=== PATIENT | male | born 1995 | race Caucasian/White ===

== ENCOUNTER → 2018-10-15 12:25 | Outpatient (CLI) | payer OTHER, SELFPAY ==
--- NOTE | 2018-10-15 | DI.RAD.S_ITS ---
PROCEDURE: FL SHOULDER INJECTION MR/CT RT INDICATIONS: PAIN IN RIGHT SHOULDER TECHNIQUE: The indications, alternatives, benefits, risks, and complications of the procedure were explained to the patient. Written informed consent was obtained and placed in the chart. The shoulder was examined fluoroscopically and a site for needle placement chosen for entry into the glenohumeral joint from an anterior approach. The skin was prepped and draped in a sterile fashion, and 1% lidocaine infiltrated from skin down to joint capsule. A spinal needle was inserted into the glenohumeral joint, and a small amount of iodinated contrast media injected to confirm intra-articular placement of the needle tip. This was followed by approximately 12 mL dilute solution of a gadolinium containing MR contrast agent. The needle was removed and a dressing was applied. The patient was given postprocedural instructions and sent to the MR suite for MR imaging. FINDINGS: A single fluoroscopic spot image demonstrates intra-articular location of injected iodinated contrast. IMPRESSION: Successful fluoroscopically guided administration of dilute Gadolinium solution into the shoulder joint for MR arthrogram. Dictated by: Eliezer Rocha M.D. on 10/15/2018 at 14:00 Approved by: Eliezer Rocha M.D. on 10/15/2018 at 14:00
--- NOTE | 2018-10-15 | DI.MRI.S_ITS ---
PROCEDURE: MR SHOULDER RT W CON INDICATIONS: PAIN IN RIGHT SHOULDER TECHNIQUE: After the administration of 12 mL of dilute intra-articular Gadolinium contrast, oblique coronal T1 and T2 spin echo with fat saturation, oblique sagittal T1 spin echo with and without fat saturation, oblique sagittal T2 fast spin echo with fat saturation, axial T1 spin echo with fat saturation through the shoulder. COMPARISON: None. FINDINGS: Image quality: Excellent. Rotator cuff: The supraspinatus, infraspinatus, and subscapularis tendons appear intact throughout. No rotator cuff muscle atrophy on sagittal images. Bones and bursae: No bone marrow contusions or fractures. No acromioclavicular joint degeneration. The acromion demonstrates conventional anatomy, without an os acromiale. Capsule and soft tissues: Irregularity of the anteroinferior labrum, for example image 15 series 6, image 14 series 6. Given the relative low signal intensity this could be chronic age. The superior labrum appears intact there the remaining labrum appears intact although there is blunted appearance of the posterior labrum. No definite posterior subluxation of the humeral head relative to the glenoid. The long head of the biceps tendon demonstrates normal location and morphology. The rotator interval appears normal, without fibrosis. The coracohumeral ligament is of normal thickness. No intra-articular bodies. IMPRESSION: Poorly defined, low signal irregularity of the anteroinferior labrum, possibly reflecting chronic tear with hypertrophic change and scarring. Of note, there is minimal degenerative change or sclerosis in the adjacent glenoid. No rotator cuff tear identified. Dictated by: John Avila M.D. on 10/15/2018 at 15:44 Approved by: John Avila M.D. on 10/15/2018 at 15:57
== END ==
DX: M25.511 Pain in right shoulder (principal)
CPT/HCPCS: 23350; 73222; 77002